=== PATIENT | female | born 1955 | race Caucasian/White ===

== ENCOUNTER 2021-06-22 19:05 | Emergency (ER) | payer OTHER, MEDICAID ==
[~2021-06-22] VITALS: Ht 165.1 cm; Wt 86.2 kg
[2021-06-22 19:10] VITALS: BP_SYST 180
--- NOTE | 2021-06-22 19:10 | NUR ---
Patient to ER bed 04 to gown for evaluation. Side rails up. Report given to FREDY Schmitz
--- NOTE | 2021-06-22 19:22 | NUR ---
Dr. Mendez present in room.
[2021-06-22] MEDS ORDERED: MORPHINE 4 MG INJ. 4 MG/ML VIAL IM ONE ×2 (19:45→21:45)
[2021-06-22] MEDS ORDERED: IBUP-1969 PO (21:11)
[2021-06-22] MEDS ORDERED: HYDR-3927 PO (21:12)
[2021-06-22] MEDS ORDERED: IBUPROFEN 800 MG TABLET PO ONE (21:15)
[2021-06-22] MEDS ORDERED: HYDROcodone/ACETAMIN 10-325 MG TAB PO ONE (21:15)
[2021-06-22 22:30] VITALS: BP_SYST 180
== END 2021-06-22 22:51 | disposition home or self-care (01) ==
LOC: SED 19:05
DX: S92.352A Displaced fracture of fifth metatarsal bone, left foot, initial encounter for closed fracture (principal); Z88.9 Allergy status to unspecified drugs, medicaments and biological substances; W10.8XXA Fall (on) (from) other stairs and steps, initial encounter; Y93.89 Activity, other specified; Y92.89 Other specified places as the place of occurrence of the external cause; Y99.8 Other external cause status
CPT/HCPCS: 29505; 73610; 73630; 73700; 76376; 96372; 99284; J2270